=== PATIENT | male | born 1975 | race Caucasian/White ===

== ENCOUNTER 2017-11-02 16:13 | Emergency (ER) | payer MEDICAID ==
[~2017-11-02] VITALS: Ht 157.5 cm; Wt 60.9 kg
[~2017-11-02 16:13] MED LIST: ONDA4TAB6 PO
[2017-11-02 17:37] VITALS: BP 110/64
[2017-11-02] MEDS ORDERED: CEPH500C5 PO (18:04)
== END 2017-11-02 18:19 | disposition home or self-care (01) ==
LOC: ER 16:14
DX: S81.801A Unspecified open wound, right lower leg, initial encounter (principal); F17.200 Nicotine dependence, unspecified, uncomplicated; F12.10 Cannabis abuse, uncomplicated; Z79.899 Other long term (current) drug therapy; W34.09XA Accidental discharge from other specified firearms, initial encounter; Y93.01 Activity, walking, marching and hiking; Y92.89 Other specified places as the place of occurrence of the external cause; Y99.8 Other external cause status
CPT/HCPCS: 73590; 99284

== ENCOUNTER 2018-04-09 11:40 | Emergency (ER) | payer MEDICAID ==
[~2018-04-09] VITALS: Ht 160 cm; Wt 61.8 kg
[~2018-04-09 11:40] MED LIST changes: +CEPH500C5 PO
[2018-04-09 11:43] VITALS: BP 117/70
[2018-04-09] MEDS ORDERED: NAPR-996 PO (11:54)
[2018-04-09] MEDS ORDERED: PENI250T2 PO (11:54)
== END 2018-04-09 12:16 | disposition home or self-care (01) ==
LOC: ER 11:40
DX: K08.89 Other specified disorders of teeth and supporting structures (principal); F12.90 Cannabis use, unspecified, uncomplicated
CPT/HCPCS: 99283